=== PATIENT | female | born 1960 ===

== ENCOUNTER 2016-12-01 14:41 | Emergency (ER) | payer BC ==
[2016-12-01 14:51] VITALS: BP 117/84
--- NOTE | 2016-12-01 16:18 | UC ---
Meredith Montalvo Emily, scribed for Evangelist Reyes MD on 12/01/16 at 1554 . Skin Complaint HPI - HPI Summary HPI Summary: This patient is a 56 year old F presenting to [facility] with a chief complaint of multiple engorged ticks at the RLE noticed yesterday. She reports having several other ticks on her which were removed by a doctor two days ago. She was started on Doxycycline. Symptoms aggravated by nothing. Symptoms alleviated by nothing. Patient denies rash. Medications reviewed. Allergies reviewed. - History of Current Complaint Chief Complaint: [place] Time Seen by Provider: 12/01/16 15:31 Stated Complaint: TICK Hx Obtained From: Patient Onset/Duration: Sudden Onset, Lasting Days, Still Present Timing: Constant Onset Severity: Moderate Current Severity: Moderate Location: Other - RLE Aggravating: Nothing Alleviating: Nothing Associated Signs & Symptoms: Negative: Rash - Allergy/Home Medications Allergies/Adverse Reactions: Allergies Allergy/AdvReac Type Severity Reaction Status Date / Time Penicillins Allergy Rash Verified 12/01/16 14:52 Home Medications: Home Medications Cholecalciferol [Vitamin D] 1 cap PO DAILY 12/01/16 [History Confirmed 12/01/16] Evening Ladd Oil [Evening Ladd Oil 500 mg] 1 cap PO DAILY 12/01/16 [ History Confirmed 12/01/16] Lactobacillus [Probiotic] 1 cap PO DAILY 12/01/16 [History Confirmed 12/01/16] Multiple Vitamins W/ Minerals [Multiple Vitamins/Womens] 1 cap PO DAILY [History Confirmed 12/01/16] Review of Systems Constitutional: Negative Skin: Other - multiple engorged ticks at the RLE; negative rash. All Other Systems Reviewed And Are Negative: Yes PMH/Surg Hx/FS Hx/Imm Hx Previously Healthy: No - Lyme treatment. - Surgical History Surgical History: None - Family History Known Family History: Positive: Cardiac Disease, Diabetes - Social History Alcohol Use: Rare Substance Use Type: None Smoking Status (MU): Never Smoked Tobacco Physical Exam Triage Information Reviewed: Yes Vital Signs: Initial Vital Signs Temp 98.8 F 12/01/16 14:48 Pulse 89 12/01/16 14:48 Resp 12 12/01/16 14:48 BP 117/84 12/01/16 14:48 Pulse Ox 99 12/01/16 14:48 Vital Signs Reviewed: Yes - Additional Comments The patient is well-nourished in no acute distress and in no acute pain. The skin is warm and dry and skin color reflects adequate perfusion. Removed a skin tag which was probably a black mole. 18 gauge needle and pair of splinter forceps. Period of brisk bleeding which was stopped with a telfa pad. HEENT: The head is normocephalic and atraumatic. Musculoskeletal: There is no back pain noted. Extremities are non-tender with full range of motion. There is good capillary refill. There is no peripheral edema or calf tenderness elicited. Neurological: Patient is alert and oriented to person, place and time. The patient has symmetrical motor strength in all four extremities. Cranial nerves are grossly intact. Deep tendon reflexes are symmetrical and equal in all four extremities. Psychiatric: The patient has an appropriate affect and does not exhibit any anxiety or depression. Course/Dx - Course Course Of Treatment: This patient is a 56 year old F presenting to [facility] with a chief complaint of multiple engorged ticks at the RLE noticed yesterday. She reports having several other ticks on her which were removed by a doctor two days ago. She was started on Doxycycline. Symptoms aggravated by nothing. Symptoms alleviated by nothing. Patient denies rash. Medications reviewed. Allergies reviewed. Patient will be discharged with follow up from PCP. The patient is agreeable with this plan. - Differential Diagnoses - Skin Complaint Differential Diagnoses: Other - tick removal, skin tag removal - Diagnoses Provider Diagnoses: FOREIGN BODY REMOVAL. Discharge - Discharge Plan Condition: Stable Disposition: HOME Patient Education Materials: Soft Tissue Foreign Body (ED) Referrals: [facility] [place] [facility] [Outside] Additional Instructions: CLEAN WOUND TWICE A DAY WITH SOAP AND WATER. The documentation as recorded by the Meredith tian Emily accurately reflects the service I personally performed and the decisions made by me, Evangelist Reyes MD.
== END 2016-12-01 15:55 | disposition home or self-care (01) ==
LOC: UCEAST 14:41
DX: S70.361A Insect bite (nonvenomous), right thigh, initial encounter (principal); W57.XXXA Bitten or stung by nonvenomous insect and other nonvenomous arthropods, initial encounter; Y93.9 Activity, unspecified; Y92.9 Unspecified place or not applicable; Q82.8 Other specified congenital malformations of skin; Z88.0 Allergy status to penicillin
CPT/HCPCS: 99211; G0463